=== PATIENT | male | born 1980 | race Caucasian/White ===

== ENCOUNTER 2019-04-09 11:57 | Emergency (ER) | payer MEDICAID, OTHER ==
[~2019-04-09] VITALS: Ht 154.9 cm; Wt 97.5 kg
[2019-04-09 12:00] VITALS: BP 15/81
== END 2019-04-09 15:20 | disposition home or self-care (01) ==
LOC: ER 11:57
DX: S63.92XA Sprain of unspecified part of left wrist and hand, initial encounter (principal); J06.9 Acute upper respiratory infection, unspecified; F17.210 Nicotine dependence, cigarettes, uncomplicated; Z88.0 Allergy status to penicillin; W23.0XXA Caught, crushed, jammed, or pinched between moving objects, initial encounter; Y93.89 Activity, other specified; Y92.89 Other specified places as the place of occurrence of the external cause; Y99.8 Other external cause status
CPT/HCPCS: 29125; 71046; 73130

== ENCOUNTER 2019-12-10 21:16 | Emergency (ER) | payer MEDICAID ==
[~2019-12-10] VITALS: Ht 180.3 cm; Wt 93.0 kg
[2019-12-11 03:38] VITALS: BP 128/71
== END 2019-12-11 04:22 | disposition home or self-care (01) ==
LOC: ER 21:16
DX: S63.602A Unspecified sprain of left thumb, initial encounter (principal); S63.614A Unspecified sprain of right ring finger, initial encounter; F17.210 Nicotine dependence, cigarettes, uncomplicated; V87.8XXA Person injured in other specified noncollision transport accidents involving motor vehicle (traffic), initial encounter; Y93.55 Activity, bike riding; Y92.410 Unspecified street and highway as the place of occurrence of the external cause; Y99.8 Other external cause status
CPT/HCPCS: 73130

== ENCOUNTER 2020-07-16 19:34 | Emergency (ER) | payer MEDICAID ==
[~2020-07-16] VITALS: Ht 180.3 cm; Wt 102.1 kg
[2020-07-16 19:35] VITALS: BP 122/80
[2020-07-16] MEDS ORDERED: KETOROLAC TROMETH 60MG/2ML VIAL IM ONE (23:00)
== END 2020-07-17 01:16 | disposition home or self-care (01) ==
LOC: ER 19:34
DX: S46.911A Strain of unspecified muscle, fascia and tendon at shoulder and upper arm level, right arm, initial encounter (principal); X50.9XXA Other and unspecified overexertion or strenuous movements or postures, initial encounter; Y93.89 Activity, other specified; Y92.89 Other specified places as the place of occurrence of the external cause; Y99.8 Other external cause status
CPT/HCPCS: 73030; 96372; 99283; J1885